=== PATIENT | male | born 1995 | race Caucasian/White ===

== ENCOUNTER 2016-05-02 15:04 | Emergency (ER) | payer OTHER ==
[2016-05-02 16:04] LABS: URINE BILIRUBIN NEGATIVE (NEGATIVE); URINE BLOOD NEGATIVE (NEGATIVE); URINE GLUCOSE (UA) NORMAL (NORMAL); URINE KETONE NEGATIVE (NEGATIVE); URINE LEUKOCYTE ESTERASE NEGATIVE (NEGATIVE); URINE NITRATE NEGATIVE (NEGATIVE); URINE PROTEIN NEGATIVE (NEGATIVE); UROBILINOGEN NORMAL mg/dL (<1.0)
[2016-05-02 16:32] LABS: BASO # 0.1 10_X3_uL (0.0-0.1); BASO % 0.4 % (0.2-1.2); EOS # 0.1 10_X3_uL (0.0-0.5); EOS % 0.9 % (0.8-7.0); GRAN # 6.7 10_X3_uL (1.8-5.4); GRAN % 59.3 % (34.0-67.9); HEMATOCRIT 43.6 % (40-51); HEMOGLOBIN 14.8 g/dL (13.7-17.5); LYMPH # 3.4 10_X3_uL (1.3-3.6); LYMPH % 29.9 % (21.8-53.1); MEAN CORPUSCULAR HEMOGLOBIN 28.8 pg (27.0-33.0); MEAN CORPUSCULAR HGB CONC 33.9 g/dL (32.0-36.0); MEAN PLATELET VOLUME 9.9 fl (7.5-11.5); MONO # 1.1 10_X3_uL (0.3-0.8); MONO % 9.5 % (5.3-12.2); PLATELET COUNT 335 x10_3/uL (163-337); RED BLOOD COUNT 5.13 x10_6/uL (4.6-6.1); RED CELL DISTRIBUTION WIDTH 14.7 % (11.6-14.4); WHITE BLOOD COUNT 11.3 x10_3/uL (4.2-9.1)
[2016-05-02 16:52] LABS: ALBUMIN 4.5 gm/dL (3.4-5.0); ALKALINE PHOSPHATASE 73 U/L (50-136); ALT/SGPT 14 U/L (7.53-40.17); AST/SGOT 22 U/L (6.66-35.34); BLOOD UREA NITROGEN 8 mg/dL (7-18); CALCIUM 9.1 mg/dL (8.7-10.7); CARBON DIOXIDE 24 mmol/L (21-32); CREATININE 0.5 mg/dL (0.6-1.3); GLUCOSE,RANDOM 93 mg/dL (70-99); POTASSIUM 3.5 mmol/L (3.5-5.1); SODIUM 142 mmol/L (136-145); TOTAL PROTEIN 7.1 gm/dL (6.4-8.2)
[2016-05-02 16:53] LABS: ETHYL ALCOHOL < 10 mg/dl
[2016-05-02 16:54] LABS: ACETAMINOPHEN < 15.0 ug/ml (10.0-30.0)
== END 2016-05-02 19:05 | disposition home or self-care (01) ==
LOC: ER 15:04
PROVIDERS: Emergency Medicine
DX: R41.0 Disorientation, unspecified (principal); F19.10 Other psychoactive substance abuse, uncomplicated; R47.81 Slurred speech; R00.0 Tachycardia, unspecified; F41.9 Anxiety disorder, unspecified; J45.909 Unspecified asthma, uncomplicated; F17.210 Nicotine dependence, cigarettes, uncomplicated
CPT/HCPCS: 36415; 71020; 80053; 80307; 81003; 83605; 85025; 87040; 93005; 99285-25; G0480

== ENCOUNTER 2016-07-01 08:42 | Observation (INO) | payer OTHER ==
[~2016-07-01] VITALS: Ht 170.2 cm; Wt 69.0 kg
[2016-07-01 10:02] LABS: BASO # 0.1 10_X3_uL (0.0-0.1); BASO % 0.5 % (0.2-1.2); EOS # 0.1 10_X3_uL (0.0-0.5); EOS % 0.9 % (0.8-7.0); GRAN # 7.5 10_X3_uL (1.8-5.4); GRAN % 70.7 % (34.0-67.9); HEMOGLOBIN 14.1 g/dL (13.7-17.5); LYMPH # 1.8 10_X3_uL (1.3-3.6); LYMPH % 16.6 % (21.8-53.1); MEAN CORPUSCULAR HEMOGLOBIN 29.2 pg (27.0-33.0); MEAN CORPUSCULAR HGB CONC 33.6 g/dL (32.0-36.0); MEAN PLATELET VOLUME 10.4 fl (7.5-11.5); MONO # 1.2 10_X3_uL (0.3-0.8); MONO % 11.3 % (5.3-12.2); PLATELET COUNT 234 x10_3/uL (163-337); RED BLOOD COUNT 4.83 x10_6/uL (4.6-6.1); RED CELL DISTRIBUTION WIDTH 14.1 % (11.6-14.4); WHITE BLOOD COUNT 10.6 x10_3/uL (4.2-9.1)
[2016-07-01 10:13] LABS: ALKALINE PHOSPHATASE 69 U/L (50-136); ALT/SGPT 10 U/L (7.53-40.17); AST/SGOT 12 U/L (6.66-35.34); BILIRUBIN,TOTAL 0.45 mg/dL (0.0-1.0); BLOOD UREA NITROGEN 13 mg/dL (7-18); CALCIUM 8.9 mg/dL (8.7-10.7); CARBON DIOXIDE 20 mmol/L (21-32); CREATININE 0.7 mg/dL (0.6-1.3); GLUCOSE,RANDOM 107 mg/dL (70-99); POTASSIUM 3.9 mmol/L (3.5-5.1); SODIUM 141 mmol/L (136-145); TOTAL PROTEIN 6.9 gm/dL (6.4-8.2)
== END 2016-07-01 20:27 | disposition left against medical advice (07) ==
LOC: ER 08:42 → MS 10:38 → UNDODEPER 07-03 15:58
PROVIDERS: General Practice; ADMIT Surgery
DX: L02.411 Cutaneous abscess of right axilla (principal); F19.10 Other psychoactive substance abuse, uncomplicated; R50.9 Fever, unspecified; F17.210 Nicotine dependence, cigarettes, uncomplicated; Z88.0 Allergy status to penicillin; Z79.899 Other long term (current) drug therapy
CPT/HCPCS: 36415; 80053; 83605; 85025; 87040; 87070; 87186; 93005; 96360; 96361; 99070; G0378; J3370; J7050

== ENCOUNTER 2016-07-07 22:36 | Emergency (ER) | payer OTHER | END 2016-07-08 05:10 | disposition home or self-care (01) | LOC: ER 22:36 | DX: F19.10 Other psychoactive substance abuse, uncomplicated (principal); R41.0 Disorientation, unspecified; V89.2XXA Person injured in unspecified motor-vehicle accident, traffic, initial encounter; F17.210 Nicotine dependence, cigarettes, uncomplicated | CPT/HCPCS: 70450; 99285-25 ==